=== PATIENT | female | born 1975 | race Caucasian/White ===

== ENCOUNTER 2020-04-09 12:43 | Outpatient (CLI) | payer BC ==
[2020-04-09] VITALS (7 sets, daily range): BP systolic 134–144; BP diastolic 83–101
[~2020-04-09 12:43] MED LIST: iohexol 300 MG/1 ML 50ml polymer ONE
[2020-04-09] MEDS ORDERED: acetaminophen 325mg tablet PO PRN (14:30)
[2020-04-09] MEDS ORDERED: proMETHazine 25mg tablet PO ONE (15:10)
[2020-04-09] MEDS ORDERED: meperidine/PF 50mg/ml syringe IM ONE (15:10)
== END 2020-04-09 23:59 | disposition home or self-care (01) ==
LOC: 64 CT 12:43
DX: M54.12 Radiculopathy, cervical region (principal); M25.78 Osteophyte, vertebrae
CPT/HCPCS: 72126; J2175; Q9967; Q0169